=== PATIENT | female | born 1955 | race Caucasian/White ===

== ENCOUNTER 2024-03-01 18:28 | Emergency (ER) | payer MEDICARE, SELFPAY ==
[2024-03-01] VITALS (10 sets, daily range): BP systolic 107–134; BP diastolic 68–79; PULSE 79–100; RESP 15–24; TEMP 36.5–37; O2SAT 6–100; BMI 17.9
--- NOTE | 2024-03-01 18:58 | EKG12_ITS ---
Test Reason : GEN ILL Blood Pressure : / mmHG Vent. Rate : 086 BPM Atrial Rate : 086 BPM P-R Int : 110 ms QRS Dur : 074 ms QT Int : 378 ms P-R-T Axes : 056 078 066 degrees QTc Int : 452 ms Sinus rhythm with short GA with Premature supraventricular complexes Otherwise normal ECG Confirmed by Lucho Ac ([id number]), development editor DAVID LOPEZ ([id number]) on 03/02/2024 11:30:13 AM Referred By: Confirmed By:Lucho Ac
--- NOTE | 2024-03-01 19:13 | ED.VIS.DYS ---
HPI <LACHELLE Saucedo - Last Filed: 03/01/24 22:15> History of Present Illness Chief Complaint: Shortness of Breath Narrative Narrative: Patient presenting today due to shortness of breath. She reports that she has had shortness of breath ever since having surgery on her hip in December. However, over the past 4 days her shortness of breath has been worse. She was discharged from the hospital on 01/08 with supplemental O2 which she has been on since. Her PCP did try to take her off of this and she was struggling with shortness of breath and was put back on 2 L which she uses at baseline. She does have a history of COPD, she has not yet followed with a mechanic general operational test. She reports that she does have a history of aspiration pneumonia as well. She does report that she has had a slight cough with occasional wheezing. Patient reports that she does have a remote history of throat and colon cancer which are in remission and she is no longer receiving treatment for these. PE Risk Factors: Positive for Recent surgery (Beginning of December 2023.); Negative for Prior DVT or PE, Recent immobilization or Recent travel [facility] <LACHELLE Saucedo - Last Filed: 03/01/24 22:15> [facility] Medical History Throat cancer Hip replacement planned Home Medications ?Medication ?Instructions ?Recorded ?Last Taken ?Type albuterol sulfate 90 mcg/actuation 1 - 2 puff inhalation Q4H PRN PRN 03/01/24 Unknown Rx aerosol inhaler (Ventolin HFA) Wheezing #1 inh levofloxacin 750 mg tablet 750 mg PO DAILY #4 tabs 03/01/24 Unknown Rx potassium chloride 20 mEq 20 meq PO BID 7 days #14 TABLETS 03/01/24 Unknown Rx tablet,extended release(part/cryst) (Klor-Con M) Allergy/AdvReac Type Severity Reaction Status Date / Time phenobarbital Allergy Hives Verified 03/01/24 18:29 Social History Smoking Status: Former smoker ROS <LACHELLE Saucedo - Last Filed: 03/01/24 22:15> ROS ED Constitutional Constitutional ED: Denies chills or fever(s) Cardiovascular Cardiovascular: Denies chest pain Respiratory/Chest Respiratory/Chest: Reports dyspnea and dyspnea on exertion; Denies cough Gastrointestinal Gastrointestinal: Denies abdominal pain, nausea or vomiting Musculoskeletal Musculoskeletal: Denies arthralgias or myalgias Integumentary Denies rash Neurologic Neurologic: Denies weakness EXAM <LACHELLE Saucedo - Last Filed: 03/01/24 22:15> Physical Exam Const Vital Signs: 03/01/24 18:29 03/01/24 18:29 03/01/24 18:33 Temperature 97.7 F L 98.6 F Temperature Source Oral Temporal Pulse Rate 100 91 Respiratory Rate 16 18 Respiratory Effort Short of Breath Respiratory Depth Normal Respiratory Pattern Normal Blood Pressure 121/70 H Blood Pressure Mean 87 Pulse Ox 95 95 Oxygen Delivery Method Nasal Cannula Nasal Cannula Nasal Cannula Oxygen Flow Rate (L/min) 2 2 2 03/01/24 18:33 03/01/24 19:33 03/01/24 19:58 Temperature 97.7 F L 98.6 F Temperature Source Temporal Oral Pulse Rate 88 87 Respiratory Rate 22 H 16 Respiratory Effort Respiratory Depth Respiratory Pattern Blood Pressure 121/70 H 129/75 H Blood Pressure Mean 87 93 Pulse Ox 94 98 98 Oxygen Delivery Method Nasal Cannula Nasal Cannula Nasal Cannula Oxygen Flow Rate (L/min) 2 4 4 03/01/24 20:03 03/01/24 20:46 03/01/24 21:45 Temperature 98.1 F 98.0 F Temperature Source Oral Oral Pulse Rate 79 82 89 Respiratory Rate 18 22 H 15 Respiratory Effort Respiratory Depth Respiratory Pattern Blood Pressure 107/68 117/68 127/75 H Blood Pressure Mean 81 84 92 Pulse Ox 98 100 98 Oxygen Delivery Method Nasal Cannula Nasal Cannula Nasal Cannula Oxygen Flow Rate (L/min) 4 3 2 Positive well nourished, well developed and no apparent distress General Appearance ED: well developed HEENT Reports normocephalic and head/scalp atraumatic Mouth ED: Yes moist mucous membranes normal Eyes PERRL and EOMs intact bilaterally Neck full ROM and supple Chest Wall inspection of chest normal Resp normal respiratory effort and clear to auscultation bilaterally Cardio regular rate and regular rhythm GI soft to palpation, non-tender, non-distended and no masses Back/Spine normal ROM and normal to inspection Extremity normal to inspection and full ROM Neuro oriented x3, CN's II-XII intact bilaterally, moves all extremities, no focal motor deficits and no sensory deficits noted Sensorium / Orientation: awake and alert Psych mental status grossly normal and thought process normal Skin no rashes or lesions noted and no wounds <Dr. River Muñzi MD - Last Filed: 03/01/24 22:12> Physical Exam Const Vital Signs: 03/01/24 18:29 03/01/24 18:29 03/01/24 18:33 Temperature 97.7 F L 98.6 F Temperature Source Oral Temporal Pulse Rate 100 91 Respiratory Rate 16 18 Respiratory Effort Short of Breath Respiratory Depth Normal Respiratory Pattern Normal Blood Pressure 121/70 H Blood Pressure Mean 87 Pulse Ox 95 95 Oxygen Delivery Method Nasal Cannula Nasal Cannula Nasal Cannula Oxygen Flow Rate (L/min) 2 2 2 03/01/24 18:33 03/01/24 19:33 03/01/24 19:58 Temperature 97.7 F L 98.6 F Temperature Source Temporal Oral Pulse Rate 88 87 Respiratory Rate 22 H 16 Respiratory Effort Respiratory Depth Respiratory Pattern Blood Pressure 121/70 H 129/75 H Blood Pressure Mean 87 93 Pulse Ox 94 98 98 Oxygen Delivery Method Nasal Cannula Nasal Cannula Nasal Cannula Oxygen Flow Rate (L/min) 2 4 4 03/01/24 20:03 03/01/24 20:46 03/01/24 21:45 Temperature 98.1 F 98.0 F Temperature Source Oral Oral Pulse Rate 79 82 89 Respiratory Rate 18 22 H 15 Respiratory Effort Respiratory Depth Respiratory Pattern Blood Pressure 107/68 117/68 127/75 H Blood Pressure Mean 81 84 92 Pulse Ox 98 100 98 Oxygen Delivery Method Nasal Cannula Nasal Cannula Nasal Cannula Oxygen Flow Rate (L/min) 4 3 2 [facility] <LACHELLE Saucedo - Last Filed: 03/01/24 22:15> [facility] Narrative Medical decision making narrative: Patient presenting with shortness of breath she has had since mid December that has been worse over the past 4 days. She does wear 2 L O2 at home, she was bumped up originally here to 4 L O2 due to feeling short of breath but did not become hypoxic. I was able to put patient back down to 2 L O2 where she has remained around 95% oxygen saturation. She does have a slight white blood cell count at 11.4, her potassium is low at 2.4, sodium was 134. Patient given p.o. potassium and IV. Chest x-ray shows bilateral infiltrates and effusions. Patient treated with IV Levaquin. She was also given IV fluids. I did consider a PE, however given patient has pneumonia I feel that this is a better explanation for her shortness of breath. I did recommend admission to the hospital for treatment however patient would rather go home. She has remained stable on 2 L O2 which she wears at baseline, she reports improvement of her symptoms. Given she is not hypoxic and has supplemental O2 I do think that this is reasonable. I will write her prescription for an albuterol inhaler, Levaquin, and potassium. Patient will be discharged in stable condition. Lab Data Attestation: I reviewed the patient's lab results. Lab results narrative: WBC 11.4, H&H 8.9 and 28.6, sodium 134, potassium 2.4, chloride 94, BUN 4, troponin 8 Labs: Laboratory Results - last 24 hr 03/01/24 19:20 WBC 11.4 H RBC 3.14 L Hgb 8.9 L Hct 28.6 L MCV 91.1 MCH 28.3 MCHC 31.1 L RDW Std Deviation 55.8 H RDW Coeff of Kasi 16.7 H Plt Count 425 MPV 8.9 Immature Gran % (Auto) 0.500 Neut % (Auto) 83.6 H Lymph % (Auto) 8.3 L [place] % (Auto) 7.4 Eos % (Auto) 0.0 Baso % (Auto) 0.2 Absolute Neuts (auto) 9.5 H Absolute Lymphs (auto) 0.94 Nucleated RBC % 0 Sodium 134 L Potassium 2.4 L* Chloride 94 L Carbon Dioxide 34.0 H Anion Gap 6 BUN 4 L Creatinine 0.41 L Estim Creat Clear Calc 45.05 Est GFR (MDRD) Af Amer 196 Est GFR (MDRD) Non-Af 162 BUN/Creatinine Ratio 9.7 L Glucose 111 H Calcium 7.8 L Troponin I High Sens 8 Radiography X-Ray: Read by ED Physician Diagnostic Testing: Clinical Impression(s) from Imaging Studies Chest X-Ray 03/01/24 19:50 IMPRESSION: There are bilateral pleural effusions. There are bilateral infiltrates. Electronically Signed: Abdelrahman Pantoja MD at 20:38 EDT , EKG Initial EKG: Comments: 86 bpm, sinus rhythm, no ST elevation <Dr. River Muñiz MD - Last Filed: 03/01/24 22:12> MDM History & Record Review Additional record(s) reviewed:: No prior records Lab Data Labs: Laboratory Results - last 24 hr 03/01/24 19:20 WBC 11.4 H RBC 3.14 L Hgb 8.9 L Hct 28.6 L MCV 91.1 MCH 28.3 MCHC 31.1 L RDW Std Deviation 55.8 H RDW Coeff of Kasi 16.7 H Plt Count 425 MPV 8.9 Immature Gran % (Auto) 0.500 Neut % (Auto) 83.6 H Lymph % (Auto) 8.3 L [place] % (Auto) 7.4 Eos % (Auto) 0.0 Baso % (Auto) 0.2 Absolute Neuts (auto) 9.5 H Absolute Lymphs (auto) 0.94 Nucleated RBC % 0 Sodium 134 L Potassium 2.4 L* Chloride 94 L Carbon Dioxide 34.0 H Anion Gap 6 BUN 4 L Creatinine 0.41 L Estim Creat Clear Calc 45.05 Est GFR (MDRD) Af Amer 196 Est GFR (MDRD) Non-Af 162 BUN/Creatinine Ratio 9.7 L Glucose 111 H Calcium 7.8 L Troponin I High Sens 8 Radiography Diagnostic Testing: Clinical Impression(s) from Imaging Studies Chest X-Ray 03/01/24 19:50 IMPRESSION: There are bilateral pleural effusions. There are bilateral infiltrates. Electronically Signed: Abdelrahman Pantoja MD at 20:38 EDT Reading Location ID and State: [facility] [place] / [place] , Service support , Treatment and Re-Evaluation Comments:: I have personally performed a face to face assessment of the patient and have reviewed the MINESH Note. I performed a substantive portion of the visit including all aspects of the following. My seth findings include: History is dyspnea for several months since hip surgery. On oxygen as result. Following up with pulmonary but has not seen them yet, worse in the past 4 days. No fevers or chills. She is not really coughing. She states with exertion her dyspnea is worse and she has chest tightness and wheezing when dyspneic. No leg edema. Hip is coming along and improving with therapy. Exam is lungs diminished throughout symmetrically no other adventitious breath sounds. Heart is regular. No pedal edema. Conversive in full sentences no respiratory distress. Medical Decison Making EKG shows sinus rhythm with PAC, otherwise unremarkable. Chest x-ray 1 view on my interpretation shows right lower lobe infiltrate possibly parapneumonic effusion. Hyperexpansion consistent with COPD she does not have PFTs, checked old records there are very few. Noted labs. Potassium is very low. We did turn her oxygen down and she is doing okay on 2 L. We recommended admission, she declines and prefers to go home. Therefore we gave her IV and oral potassium, a prescription for that, as well as antibiotics. Will also give her a rescue inhaler we discussed reasons to return where she does change her mind and feels too weak or dyspneic to stay at home. Other additions or changes: [None] Discharge Plan Triage Chief Complaint: Shortness of Breath ED Midlevel Provider: Vielka Matt ED Provider: River Muñiz Dx/Rx/DC Orders Clinical Impression: Pneumonia, Shortness of breath, Acute hypokalemia Instructions: ED Hypokalemia, ED Pneumonia (Adult) Prescriptions: New levofloxacin 750 mg tablet 750 mg PO DAILY Qty: 4 0RF potassium chloride [Klor-Con M20] 20 mEq tablet,ER particles/crystals 20 meq PO BID 7 Days Qty: 14 0RF albuterol sulfate [Ventolin HFA] 90 mcg/actuation HFA aerosol inhaler 1 - 2 puff inhalation Q4H PRN PRN (Reason: Wheezing) Qty: 1 0RF Primary Care Provider: CHARLOTTE LITTLEJOHN Referrals: CHARLOTTE LITTLEJOHN [Other] Activity Restrictions/Additional Instructions: Follow-up with your PCP in the next 5 to 7 days and return for any worsening of your symptoms. Print Language: Czech Disposition Disposition: Home, Self Care
[2024-03-01 19:40] LABS: Absolute Lymphocyte Count 0.94 X10^3/uL (0.83-4.51); Absolute Neutrophil Count 9.5 X10^3/uL (2.0-7.7); Basophil# 0.02 X10^3/uL; Basophil% 0.2 % (0-1); Hematocrit 28.6 % (37-47); Hemoglobin 8.9 g/dL (12.0-15.0); Lymphocyte # 0.94 X10^3/ul (0.83-4.51); Lymphocyte % 8.3 % (19-41); Mean Corp Hgb Conc 31.1 g/dL (32-36); Mean Corpuscular Hgb 28.3 pg (27.0-32.0); Mean Corpuscular Volume 91.1 fL (81-99); Mean Platelet Vol. 8.9 fl (6.2-12.0); Monocyte# 0.84 X10^3/uL; Monocyte% 7.4 % (0-10); NRBC Flagged by Analyzer 0 % (0-5); Neutrophil # 9.52 X10^3/uL (2.7-7.7); Neutrophil % 83.6 % (47-70); Platelet Count 425 K/mm3 (150-450); RBC Distribution Width CV 16.7 % (11.6-14.6); RBC Distribution Width SD 55.8 fl (35.1-43.9); Red Blood Count 3.14 M/mm3 (4.2-5.4); White Blood Count 11.4 K/mm3 (4.4-11.0)
--- NOTE | 2024-03-01 19:50 | RAD_ITS ---
STUDY: XR Chest 2 Views 03/01/2024 7:49 PM REASON FOR EXAM: Female, 69 years old. SOB COMPARISON: None TECHNIQUE: XR Chest 2 Views FINDINGS: There are bilateral pleural effusions. There are bilateral infiltrates. Normal heart size. Normal mediastinum. Normal lloyd. Prominent appearing increased interstitial lung markings. Normal visualized pulmonary arteries. There is atherosclerotic calcification of the aortic arch with tortuosity. There are diffuse degenerative changes of the visualized thoracic spine. There is degenerative osteoarthritis of the bilateral shoulders. There are no acute findings of the upper abdomen. RAD/Chest PA and Lateral IMPRESSION: There are bilateral pleural effusions. There are bilateral infiltrates. Electronically Signed: Abdelrahman Pantoja MD at 20:38 EDT ,
[2024-03-01 20:14] LABS: Anion Gap 6 (5-15); BUN 4 mg/dL (7-18); BUN/Creat Ratio 9.7 RATIO (10-20); Calcium,Total 7.8 mg/dL (8.5-10.1); Chloride 94 mmol/L (98-107); Creatinine, Serum 0.41 mg/dL (0.55-1.02); EST Glomerular Filtration Rate 162 mL/min (>60); Est Glom Filt Rate - Afr Amer 196 mL/min (>60); Estimated Creatinine Clearance 45.05 ml/min; Glucose 111 mg/dL (74-106); Potassium 2.4 mmol/L (3.5-5.1); Sodium Level 134 mmol/L (136-145); Troponin-I HS 8 pg/mL (3.0-54.0)
[2024-03-01] MEDS: Potassium Chloride Oral Tablet 20 MEQ 40 MEQ PO (20:33)
[2024-03-01] MEDS: 0.9% Normal Saline (500mL Bag) 500 ML 999 ML IV (21:35)
[2024-03-01] MEDS: Potassium Chloride 10mEq/100mL 10 MEQ/100 ML IV.SOLN. 100 MEQ IV BOLUS (21:37)
[2024-03-01] MEDS: levoFLOXacin IV 750 MG/150 ML BAG 100 MG IV (21:42)
== END 2024-03-02 00:07 | disposition home or self-care (01) ==
PROVIDERS: Physician Assistant; Emergency Provider Emergency Medicine; Visit Provider Emergency Medicine
DX: J18.9 Pneumonia, unspecified organism (principal); J44.9 Chronic obstructive pulmonary disease, unspecified; E87.6 Hypokalemia; Z87.891 Personal history of nicotine dependence; R06.02 Shortness of breath; Z85.038 Personal history of other malignant neoplasm of large intestine; Z85.89 Personal history of malignant neoplasm of other organs and systems; Z96.649 Presence of unspecified artificial hip joint
CPT/HCPCS: 71046; 80048; 84484; 85025; 93005; 96365; 96366; 99283; J7040; A4216

== ENCOUNTER 2024-06-16 23:10 | Emergency (ER) | payer MEDICARE, SELFPAY ==
[2024-06-16 23:11] VITALS: BP 154/90; PULSE 80; RESP 18; TEMP 36.6; O2SAT 99
--- NOTE | 2024-06-16 23:28 | RAD_ITS ---
INDICATION: PAIN EXAMINATION/TECHNIQUE: X-RAY - XR Hip Unilateral with Pelvis when performed; 2-3 Views COMPARISON: No relevant prior comparison study available FINDINGS: PELVIC BONES: No displaced fracture, destructive or sclerotic lesions. Note that overlapping bowel shadows may however obscure fine detail. Sacroiliac joints and demonstrate moderate arthrosis. No widening of the pubic symphysis. HIPS: The articular structures are unremarkable. There is healing fracture of the right femoral neck with hardware from prior ORIF in good position. SOFT TISSUES: No soft tissue swelling or gas. RAD/HIP, UNI W/ Pelvis 2-3 Views IMPRESSION: There is healing fracture of the right femoral neck with hardware from prior ORIF in good position. Electronically Signed: Sameer Alicea MD at 0:23 EDT ,
[2024-06-17] MEDS: oxyCODONE 5 MG Tablet 10 MG PO (00:04)
--- NOTE | 2024-06-17 01:08 | EX.ED.DYSGE1 ---
HPI History of Present Illness Chief Complaint: Lower Extremity Injury Informant: patient Narrative Narrative: Patient is a 69-year-old female with history of throat cancer osteoarthritis/osteopenia and previous right hip fracture that underwent ORIF in December of this year. She also has a history of chronic pain and was on oxycodone daily but stopped going to pain management and is no longer on the opioid medication for the past 1 to 2 weeks. Patient states there is been no trauma but ever since the hip was replaced she has had persistent pain that worsens with motion. She states that she has seen her surgeon because of this and was told that everything was okay. She states that she cannot sleep this evening secondary to the persistent/increased pain and therefore comes in for evaluation [facility] Medical History Throat cancer Hip replacement planned Home Medications ?Medication ?Instructions ?Recorded ?Last Taken ?Type albuterol sulfate 90 mcg/actuation 1 - 2 puff inhalation Q4H PRN PRN 03/01/24 Unknown Rx aerosol inhaler (Ventolin HFA) Wheezing #1 inh levofloxacin 750 mg tablet 750 mg PO DAILY #4 tabs 03/01/24 Unknown Rx potassium chloride 20 mEq 20 meq PO BID 7 days #14 TABLETS 03/01/24 Unknown Rx tablet,extended release(part/cryst) (Klor-Con M) oxycodone 10 mg tablet 10 mg PO Q6H PRN pain 3 days #12 06/17/24 Unknown Rx tabs Allergy/AdvReac Type Severity Reaction Status Date / Time phenobarbital Allergy Hives Verified 06/16/24 23:11 Social History Smoking Status: Unknown if ever smoked ROS [facility] ED Constitutional Constitutional ED: Denies chills or fever(s) ENT ENT ED: Denies sore throat Cardiovascular Cardiovascular: Denies chest pain Respiratory/Chest Respiratory/Chest: Reports cough; Denies dyspnea Gastrointestinal Gastrointestinal: Denies abdominal pain, diarrhea, nausea or vomiting Genitourinary Genitourinary ED: Denies dysuria Musculoskeletal Musculoskeletal: Reports other Details: Positive right hip pain ; Denies back pain or neck pain Integumentary Denies rash Neurologic Neurologic: Denies headache(s) Hematologic/Lymphatic Hematologic/Lymphatic: Denies easy bleeding or easy bruising EXAM Physical Exam Const Vital Signs: 06/16/24 23:11 06/17/24 01:19 Temperature 97.9 F Temperature Source Temporal Pulse Rate 80 84 Respiratory Rate 18 18 Blood Pressure 154/90 H Blood Pressure Mean 111 Pulse Ox 99 92 Oxygen Delivery Method Room Air Positive well nourished and well developed General Appearance ED: well developed; Negative for pallor HEENT HEENT Narrative: Normocephalic atraumatic Eyes PERRL and EOMs intact bilaterally General Eye ED: Negative for scleral icterus Neck supple Resp normal respiratory effort Resp Narrative: Breath sounds are diminished throughout with faint rhonchi and expiratory wheeze in the bilateral lower lobes but no nasal flaring retractions tachypnea or accessory muscle use Cardio regular rate and regular rhythm GI normal to inspection, nondistended, normoactive bowel sounds, non-tender, non-distended and no masses GI Narrative: Soft nontender nondistended with normal active bowel sounds no voluntary guarding or rigidity or pulsatile mass. No fluid wave or increased tympany Auscultation: normoactive bowel sounds Palpation: soft Extremity Extremity Narrative: No asymmetric edema no pitting edema negative Homans' sign bilaterally Active range of motion is decreased secondary to pain There is no obvious bony deformity or joint effusion noted of the right hip. No overlying erythema or warmth no rash no ecchymosis or hematoma noted. Bilateral lower extremities are neurovascularly intact Neuro oriented x3 and CN's II-XII intact bilaterally Sensorium / Orientation: alert Psych mental status grossly normal Skin no rashes or lesions noted and no wounds General Skin Exam: Negative for jaundice or pallor MDM MDM MDM Narrative Medical decision making narrative: Patient arrived to the ER hypertensive but otherwise with stable vitals. She reports she has been having this pain since her surgery roughly 4 to 5 months ago and states there has been no repeat trauma or increased activity. She states that she is no longer taking oxycodone which she was doing for quite some time. Differential diagnosis is for osteomyelitis versus periprosthetic fracture versus potential dislocation versus ligamentous or muscular tear versus infection such as cellulitis or abscess or herpes zoster. I discussed with patient potential blood work to go with her physical exam to suggest that septic joint is low in the differential. She states she just had blood work done at an outside hospital recently and that there was no clinically significant findings and does not want blood work repeated. As she is able to lay on her hip and move her hip concern for septic joint is low and there is also no fever in the ER and there are no signs of recent injury or trauma so I concern for this low and will not force laboratory studies as patient does not want to performed. An x-ray was obtained to check for osteomyelitis changes versus periprosthetic fracture versus joint effusion. X-ray revealed a persistent fracture of the femoral neck but otherwise no clinically significant findings. At this time patient's potential pain could be related to the fact she is no longer on opioids could also be due to the fact that she has a nonunion fracture or there is a potential nervous compression or muscular or tendon tear associated with her previous injury and surgery. I discussed with patient further workup and even potential hospitalization as she lives alone and for placement in a residential. Patient reports that she does not want that know any reason she is here is secondary to the persistent pain. As x-ray shows no acute bony abnormality and physical exam does not suggest infection or DVT I do not feel there is need for workup and he otherwise safe for discharge History & Record Review Discussion w/independent historian: Patient Radiography Diagnostic Testing: Clinical Impression(s) from Imaging Studies Hip/Pelvis X-Ray 06/16/24 23:28 IMPRESSION: There is healing fracture of the right femoral neck with hardware from prior ORIF in good position. Electronically Signed: Sameer Alicea MD at 0:23 EDT , X-ray of the right hip with 1 view pelvis as interpreted by the emergency medicine physician reveals a healing right femoral neck fracture with hardware intact and in place without signs of secondary infection or joint effusion. 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, History of throat cancer, Osteoarthritis Instructions: Understanding Hip Fractures, How Bones Heal Prescriptions: New oxycodone 10 mg tablet 10 mg PO Q6H PRN (Reason: pain) 3 Days Qty: 12 0RF No Action levofloxacin 750 mg tablet 750 mg PO DAILY Qty: 4 0RF potassium chloride [Klor-Con M20] 20 mEq tablet,ER particles/crystals 20 meq PO BID 7 Days Qty: 14 0RF albuterol sulfate [Ventolin HFA] 90 mcg/actuation HFA aerosol inhaler 1 - 2 puff inhalation Q4H PRN PRN (Reason: Wheezing) Qty: 1 0RF Primary Care Provider: CHARLOTTE LITTLEJOHN Referrals: CHARLOTTE LITTLEJOHN [Other] Activity Restrictions/Additional Instructions: Please talk to your family doctor about obtaining an MRI of your right hip to assess for potential ligament or muscle tear as a cause of your increased pain and return to the ER should you have any further concerns Print Language: Sinhala Disposition Disposition: Home, Self Care Discharge Date/Time: 06/17/24 01:22
[2024-06-17 01:19] VITALS: PULSE 84; RESP 18; O2SAT 92
== END 2024-06-17 01:22 | disposition home or self-care (01) ==
PROVIDERS: Emergency Provider Emergency Medicine; Visit Provider Emergency Medicine
DX: S72.001K Fracture of unspecified part of neck of right femur, subsequent encounter for closed fracture with nonunion (principal); M19.90 Unspecified osteoarthritis, unspecified site; Z85.89 Personal history of malignant neoplasm of other organs and systems; Z96.649 Presence of unspecified artificial hip joint
CPT/HCPCS: 73502; 99282